=== PATIENT | female | born 2005 | race Caucasian/White ===

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

== ENCOUNTER → 2023-09-21 | Outpatient (CLI) | payer OTHER ==
[2023-09-25 10:06] LABS: HSV-2 DNA Negative (Negative)
== END | disposition home or self-care (01) ==
LOC: LAB 17:51
PROVIDERS: ATTEND Nurse Practitioner Women's Health
DX: B00.9 Herpesviral infection, unspecified (principal)